=== PATIENT | male | born 1940 | race Caucasian/White ===

== ENCOUNTER 2022-02-11 01:42 | Emergency (ER) | payer MEDICARE ==
[~2022-02-11] VITALS: Ht 172.7 cm; Wt 72.7 kg
[2022-02-11 03:58] LABS: BASO # 0.1 10^3/uL (0.0-0.2); BASO % 1.1 % (0.0-1.0); EOS # 0.6 10^3/uL (0.0-0.5); EOS % 7.4 % (0.0-3.0); HEMATOCRIT 37.1 % (42.0-52.0); HEMOGLOBIN 12.6 g/dl (13.5-17.5); LYMPH % 23.3 % (24.0-44.0); MEAN CORPUSCULAR HEMOGLOBIN 30.4 pg (27.0-33.0); MEAN CORPUSCULAR VOLUME 89.6 fl (80.0-96.0); MONO # 0.7 10^3/uL (0.0-0.8); MONO % 7.9 % (2.0-8.0); NEUTROPHILS # 5.1 10^3/uL (1.5-8.5); NEUTROPHILS % 60.1 % (36.0-66.0); PLATELET COUNT, AUTOMATED 221 10^3/uL (150-450); RED BLOOD COUNT 4.14 10^6/uL (4.30-6.10); WHITE BLOOD COUNT 8.5 10^3/uL (4.0-10.0)
[2022-02-11] MEDS ORDERED: AUGMENTIN 875 MG TAB PO ONE (04:50)
[2022-02-11] MEDS ORDERED: AMOX875T2 PO (04:54)
[2022-02-11 05:19] VITALS: BP 128/78
== END 2022-02-11 05:22 | disposition home or self-care (01) ==
LOC: M ED 01:42
DX: L03.031 Cellulitis of right toe (principal); L60.0 Ingrowing nail; E78.5 Hyperlipidemia, unspecified; K21.9 Gastro-esophageal reflux disease without esophagitis; N40.0 Benign prostatic hyperplasia without lower urinary tract symptoms